=== PATIENT | male | born 1980 | race Caucasian/White ===

== ENCOUNTER 2016-11-25 13:49 | Emergency (ER) | payer OTHER ==
--- NOTE | ~2016-11-25 | EKG ---
PATIENT: ALBERTO ZULETA UNIT #: [id number] Ventricular Rate: 71 BPM Atrial Rate: 71 BPM P-R Interval: 146 ms QRS Duration: 88 ms Q-T Interval: 356 ms QTC Calculation(Bezet): 386 ms P [place]: 37 degrees Calculated R [place]: 8 degrees Calculated T [place]: 24 degrees Diagnosis Line: Normal sinus rhythm Diagnosis Line: Normal ECG Diagnosis Line: No previous ECGs available Diagnosis Line: Confirmed by KEITH GUY MD ([id number]) on Diagnosis Line: 11/26/2016 11:24:31 AM INTERPRETING MD: MALENA GONZALEZ
[2016-12-07] MEDS ORDERED: NO MEDICATIONS (01:12)
== END 2016-11-25 15:40 | disposition home or self-care (01) ==
LOC: CED 13:49
DX: T40.1X1A Poisoning by heroin, accidental (unintentional), initial encounter (principal); F17.210 Nicotine dependence, cigarettes, uncomplicated
CPT/HCPCS: 93005; 96374; 99283; J2310

== ENCOUNTER 2016-12-07 01:26 | Emergency (ER) | payer OTHER ==
[~2016-12-07 01:26] MED LIST: NO MEDICATIONS
== END 2016-12-07 03:05 | disposition home or self-care (01) ==
LOC: SED 01:26
DX: T40.1X1A Poisoning by heroin, accidental (unintentional), initial encounter (principal); F17.210 Nicotine dependence, cigarettes, uncomplicated
CPT/HCPCS: 99282